=== PATIENT | female | born 1965 | race African-American/Black ===

== ENCOUNTER 2019-07-26 06:25 | Day surgery (SDC) | payer OTHER ==
[~2019-07-26] VITALS: Ht 163.8 cm; Wt 70.5 kg
[~2019-07-26 06:25] MED LIST: ALBU8HFA IH; AZIT250T9 PO; IPRA4AER IH; PRED10 PO; PRED20 PO; SODIUM CHLORIDE 0.9% 1,000 ML IV ONE
[2019-07-26] MEDS ORDERED: LIDOCAINE 4% 50 ML SOLUTION TP ONE (06:26)
[2019-07-26] MEDS ORDERED: BENZOCAINE 20% 50 MCG/SPRAY 57 GM TP ONE (06:26)
[2019-07-26] MEDS ORDERED: ALBUTEROL SULFATE 2.5 MG/0.5 ML NEB SOLUTION NEB ONE (06:26)
[2019-07-26] MEDS ORDERED: LIDOCAINE 2% 30 ML JELLY TP ONE (06:26)
[2019-07-26] MEDS ORDERED: SODIUM CHLORIDE 0.9% 1,000 ML IV ONE (07:00)
[2019-07-26] MEDS ORDERED: FentaNYL CITRATE-PF 100 MCG/2 ML VIAL ONE (07:56)
[2019-07-26] MEDS ORDERED: MIDAZOLAM HCL 2 MG/2 ML VIAL ONE (07:56)
[2019-07-26] MEDS ORDERED: MethylPREDNISolone SOD SUCC 125 MG/2 ML VIAL IVP ONE (09:00)
[2019-07-26] MEDS ORDERED: OXYGEN THERAPY IH SCH (20:00)
== END 2019-07-26 10:00 | disposition home or self-care (01) ==
LOC: SURGERY 06:25
PROVIDERS: ATTEND Internal Medicine Critical Care Medicine
DX: J38.4 Edema of larynx (principal); B37.0 Candidal stomatitis; J98.8 Other specified respiratory disorders; J44.9 Chronic obstructive pulmonary disease, unspecified; I50.9 Heart failure, unspecified; F17.210 Nicotine dependence, cigarettes, uncomplicated; Z72.89 Other problems related to lifestyle; Z79.899 Other long term (current) drug therapy
CPT/HCPCS: 31623; 31624; 71045; 87015; 87070; 87077; 87101; 87186; 87205; 87206; 87220; 88108; 88312; J2250; J2930; J3010; J7030